=== PATIENT | male | born 2000 | race Caucasian/White ===

== ENCOUNTER 2023-06-06 22:25 | Emergency (ER) | payer MEDICARE, SELFPAY ==
[2023-06-06 22:34] VITALS: BP 114/78; PULSE 107; RESP 18; TEMP 37.1; O2SAT 97; BMI 28.7
--- NOTE | 2023-06-06 22:40 | PC.NURSE ---
States has been not eating and drinking to loose weight for a fight. States dizzy when he gets up quickly. Took his med on an empty stomach tonight
[2023-06-06 22:42] VITALS: RESP 16
--- NOTE | 2023-06-06 22:47 | ECG_ITS ---
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
[2023-06-06 23:04] LABS: Basophils Absolute Auto 0.1 10^3/uL (0.0-0.1); Basophils Percent Auto 0.8 % (0.2-2.0); Eosinophils Absolute Auto 0.1 10^3/uL (0.0-0.7); Hematocrit 40.6 % (42.0-54.0); Hemoglobin 13.9 g/dL (14.0-18.0); Immature Granulocytes Abs Auto 0.02 10^3/uL (0.00-0.03); Immature Granulocytes Pct Auto 0.3 % (0.0-0.5); Lymphocytes Absolute Auto 1.7 10^3/uL (1.2-3.8); Lymphocytes Percent Auto 23.9 % (20.5-60.0); Mean Corpuscular HGB Conc 34.2 g/dL (29.9-35.2); Mean Corpuscular Hemoglobin 29.8 pg (25.9-34.0); Mean Corpuscular Volume 87.1 fL (80.0-94.0); Monocytes Absolute Auto 0.5 10^3/uL (0.3-0.8); Monocytes Percent Auto 7.2 % (1.7-12.0); Neutrophils Absolute Auto 4.8 10^3/uL (1.4-6.5); Neutrophils Percent Auto 66.8 % (43.0-75.0); Platelet Count 195 10^3/uL (150-450); Red Blood Count 4.66 10^6/uL (4.70-6.10); Red Cell Distribution Width 11.9 % (11.0-15.0); White Blood Count 7.2 10^3/uL (4.0-11.0)
[2023-06-06 23:21] LABS: Alanine Aminotransferase 36 U/L (16-63); Albumin Globulin Ratio 1.1; Albumin Level 4.3 g/dL (3.4-5.0); Alkaline Phosphatase 49 U/L (46-116); Anion Gap 15.9; Aspartate Amino Transferase 38 U/L (15-37); BUN Creatinine Ratio 29.5; Bilirubin Total 1.2 mg/dL (0.2-1.0); Calcium 9.9 mg/dL (8.5-10.1); Carbon Dioxide 24.7 mmol/L (21.0-32.0); Chloride 101 mmol/L (98-107); Estimated GFR (African America >60 (>=60); Estimated GFR (Non-African Ame >60 (>=60); Globulin 3.9 g/dL; Glucose 107 mg/dL (74-106); Potassium 4.6 mmol/L (3.5-5.1); Sodium 137 mmol/L (136-145); Total Protein 8.2 g/dL (6.4-8.2)
--- NOTE | 2023-06-06 23:28 | ED_ITS ---
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 He now presents with dizziness and muscle aches, concerned that he is possibly dehydrated. He said that he drank a bunch of electrolyte solutions about an hour before coming to the ED. No recent illness. No chest pain or shortness of breath. No vomiting or diarrhea today. Related Data Home Medications Medication Instructions Recorded Confirmed quetiapine 200 mg tablet (Seroquel) 200 mg PO DAILY 06/06/23 06/06/23 Allergies Allergy/AdvReac Type Severity Reaction Status Date / Time No Known Drug Allergies Allergy Verified 06/06/23 22:38 PFSH PFSH Social History Smoking status: Never smoker Exam Narrative Exam Narrative: Nurses notes and vital signs reviewed and patient is not hypoxic. afebrile General: Well-appearing and in no apparent distress. Skin: Warm, dry, no pallor noted. No rash. Head: Normocephalic, atraumatic. Neck: Supple, non-tender. Eye: Pupils are equal, round and EOMI. No scleral icterus. Ears, Nose, Mouth, and Throat: Oral mucosa is dry Cardiovascular: tachycardia. Respiratory: No accessory muscle use or respiratory distress. Lungs are clear to auscultation, no wheezing, rales or rhonchi Musculoskeletal: normal ROM, no calf or popliteal tenderness, no lower extremity edema/swelling GI: Abdomen is soft, non-distended. Normal bowel sounds. No tenderness to palpation. No rebound, guarding, or rigidity noted. Neurological: A&O x4. No cranial nerve dysfunction observed. No truncal ataxia. Moves all extremities. Sensation intact. Psychiatric: Cooperative and interactive. Normal mood and affect. Constitutional Vital Signs, click to edit/add: Last Vital Signs Temp 98.7 F 06/06/23 22:34 Pulse 85 06/06/23 23:48 Resp 16 06/06/23 23:48 BP 134/71 06/06/23 23:48 Pulse Ox 98 06/06/23 23:48 O2 Del Method Room Air 06/06/23 23:48 Course Vital Signs Vital signs: Vital Signs Temperature 98.7 F 06/06/23 22:34 Pulse Rate 107 H 06/06/23 22:34 Respiratory Rate 18 06/06/23 22:34 Blood Pressure 114/78 06/06/23 22:34 Pulse Oximetry 97 06/06/23 22:34 Oxygen Delivery Method Room Air 06/06/23 22:34 Temperature 98.7 F 06/06/23 22:34 Pulse Rate 85 06/06/23 23:48 Respiratory Rate 16 06/06/23 23:48 Blood Pressure 134/71 06/06/23 23:48 Pulse Oximetry 98 06/06/23 23:48 Oxygen Delivery Method Room Air 06/06/23 23:48 MDM - Dizziness MDM Narrative Medical decision making narrative: Patient was placed on hand funnel coater and EKG obtained. Blood drawn and sent for evaluation. The patient refused NS IVF bolus that I ordered. EKG detailed below. Blood testing revealed elevated BUN, AST and total bilirubin. CK, MB, CKMB and troponin negative. Patient informed of results. Again declined offer for NS IVF. I instructed him to eat and drink plenty of fluids. ED return if he worsens. Lab Data Attestation: I reviewed the patient's lab results. Labs: Lab Results 06/06/23 Range/Units 23:00 WBC 7.2 (4.0-11.0) 10^3/uL RBC 4.66 L (4.70-6.10) 10^6/uL Hgb 13.9 L (14.0-18.0) g/dL Hct 40.6 L (42.0-54.0) % MCV 87.1 (80.0-94.0) fL MCH 29.8 (25.9-34.0) pg MCHC 34.2 (29.9-35.2) g/dL RDW 11.9 (11.0-15.0) % Plt Count 195 (150-450) 10^3/uL MPV 11.0 (9.5-13.5) fL Neut % (Auto) 66.8 (43.0-75.0) % Lymph % (Auto) 23.9 (20.5-60.0) % [place] % (Auto) 7.2 (1.7-12.0) % Eos % (Auto) 1.0 (0.9-7.0) % Baso % (Auto) 0.8 (0.2-2.0) % Neut # (Auto) 4.8 (1.4-6.5) 10^3/uL Lymph # (Auto) 1.7 (1.2-3.8) 10^3/uL [place] # (Auto) 0.5 (0.3-0.8) 10^3/uL Eos # (Auto) 0.1 (0.0-0.7) 10^3/uL Baso # (Auto) 0.1 (0.0-0.1) 10^3/uL Abs Immat Gran (auto) 0.02 (0.00-0.03) 10^3/uL Imm/Tot Granulo (auto) 0.3 (0.0-0.5) % Sodium 137 (136-145) mmol/L Potassium 4.6 (3.5-5.1) mmol/L Chloride 101 (98-107) mmol/L Carbon Dioxide 24.7 (21.0-32.0) mmol/L Anion Gap 15.9 BUN 36.0 H (7.0-18.0) mg/dL Creatinine 1.22 (0.70-1.30) mg/dL Est GFR ( Amer) >60 (>=60) Est GFR (Non-Af Amer) >60 (>=60) BUN/Creatinine Ratio 29.5 Glucose 107 H (74-106) mg/dL Calcium 9.9 (8.5-10.1) mg/dL Total Bilirubin 1.2 H (0.2-1.0) mg/dL AST 38 H (15-37) U/L ALT 36 (16-63) U/L Alkaline Phosphatase 49 (46-116) U/L Total Creatine Kinase 216 (39-308) U/L CK-MB (CK-2) 1.26 (<=3.60) ng/mL Myoglobin 88 (16-96) ng/mL Troponin I High Sens 26.1 (4.0-76.1) pg/mL Total Protein 8.2 (6.4-8.2) g/dL Albumin 4.3 (3.4-5.0) g/dL Globulin 3.9 g/dL Albumin/Globulin Ratio 1.1 ECG Data Attestation: I personally reviewed and interpreted this ECG as follows: Interpretation: EKG interpretation: Emergency Department physician interpretation. Normal sinus rhythm at 92bpm. Normal axis, normal intervals. Early repolarization changes noted. Discharge Plan Discharge Chief Complaint: Dizziness Clinical Impression: Acute kidney injury, Acute dehydration Patient Disposition: Home, Self-Care Time of Disposition Decision: 23:34 Prescriptions / Home Meds: No Action quetiapine [Seroquel] 200 mg tablet 200 mg PO DAILY Instructions: Dehydration (ED), Acute Kidney Injury (DC) Stand Alone Forms: Portal Instructions Referrals: Physician,Non-Staff, MD [Primary Care Provider] - 1 week
[2023-06-06 23:35] LABS: Creatine Kinase 216 U/L (39-308); Creatine Kinase MB 1.26 ng/mL (<=3.60); Myoglobin 88 ng/mL (16-96); Troponin I High Sensitivity 26.1 pg/mL (4.0-76.1)
[2023-06-06 23:48] VITALS: BP 134/71; PULSE 85; RESP 16; O2SAT 98
== END 2023-06-06 23:58 | disposition home or self-care (01) ==
PROVIDERS: Emergency Provider Emergency Medicine
DX: N17.9 Acute kidney failure, unspecified (principal); E86.0 Dehydration
CPT/HCPCS: 36415; 80053; 82550; 82553; 83874; 84484; 85025; 93005; 99284

== ENCOUNTER 2023-10-31 04:33 | Emergency (ER) | payer MEDICARE, SELFPAY ==
[2023-10-31] VITALS (9 sets, daily range): BP systolic 128; BP diastolic 80; PULSE 55–72; TEMP 36.7; O2SAT 97–99; BMI 31.6
[2023-10-31] MEDS: 0.9 % SODIUM CHLORIDE 1,000 ML 1000 ML IV (05:00)
--- NOTE | 2023-10-31 05:07 | ED_ITS ---
HPI HPI - General Adult General Chief complaint: Back Pain/Injury Stated complaint: BACK PAIN Time Seen by Provider: 10/31/23 04:39 Source: patient and friend Mode of arrival: walk-in Limitations: no limitations History of Present Illness HPI narrative: This 23-year-old male presents for evaluation of upper thoracic back pain. He points to the area between his scapula as area of greatest pain. The patient states he works nights and woke up yesterday around 4 PM. At that time he was having pain with deep breathing in the upper thoracic region. The pain has been waxing and waning and earlier this morning he was at the gym with his girlfriend when he was doing shoulder lifts and she states that his lips turned blue and he was pale. He presented to the emergency department with these complaints. His lips are no longer blue and he is no longer pale. He is uncertain if he may have been holding his breath at that time due to the pain in his upper back. He has no weakness numbness or tingling. He denies any chest pain. He denies any per shortness of breath but does have pain when he takes a deep breath. 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 He states this feels like it is internal. There is no radiation into his chest or neck. He does state that he had a neck sprain a couple months ago. He admits that he has been drinking a lot of energy drinks, 2-3 a day for the past several weeks. He denies any nausea vomiting or diarrhea. He has no lower extremity pain or swelling. He does not smoke drink or use any drugs. No medications have been taken prior to arrival. Related Data Home Medications ?Medication ?Instructions ?Recorded ?Confirmed quetiapine 200 mg tablet (Seroquel) 200 mg PO DAILY 06/06/23 10/31/23 cariprazine 1.5 mg capsule mg 10/31/23 (Vraylar) levothyroxine 25 mcg tablet mcg 10/31/23 Allergies Allergy/AdvReac Type Severity Reaction Status Date / Time No Known Drug Allergies Allergy Verified 10/31/23 04:41 Opioid HPI Opioid Management Most Recent Opioid Data: No Data to Display Review of Systems ROS Status of ROS 10 or more systems reviewed and unremark able except as noted in history and below PFSH PFSH Social History Smoking status: Never smoker Exam Narrative Exam Narrative: Vital signs and Nursing Notes reviewed: Vital signs are stable, he is not hypoxic pulse ox of 99% on room air General: Awake, alert, oriented, no acute distress, lying comfortably on the stretcher HEENT: Normocephalic atraumatic, mucous membranes are moist and pink, eyes are clear, normal conjunctiva, vision is grossly intact, posterior pharynx is normal in appearance Neck: Supple, no meningeal signs, no anterior or posterior cervical lymphadenopathy Chest: Lungs are clear to auscultation with good air entry, there is no wheezing rhonchi or rales appreciated no accessory muscle use, patient is speaking in complete sentences-no chest wall tenderness to palpation CVS: Regular rate and rhythm S1-S2, no murmurs rubs or gallops, pulses are brisk and equal bilaterally ABD: Soft, nondistended, nontender, no rebound guarding or rigidity, bowel sounds are normal, no pulsatile masses appreciated Back: Mild tenderness to palpation in the upper thoracic region, T6-T8, no step- off appreciated, no skin rash in this area, mild muscle spasm appreciated in the parascapular and trapezius muscles Extremities: Moving all extremities, no lower extremity tenderness or swelling noted, negative Homans' sign, pulses are brisk and equal bilaterally Skin: Normal in appearance without rash,pallor, petechiae or purpura Neuro: No focal deficits, speech is clear, there is no facial droop, 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, upper and lower extremity strength and sensation is intact Constitutional Vital Signs, click to edit/add: Last Vital Signs Temp 98.0 F 10/31/23 04:36 Pulse 67 10/31/23 05:52 Resp 22 H 10/31/23 05:52 BP 128/80 10/31/23 04:36 Pulse Ox 97 10/31/23 04:52 O2 Del Method Room Air 10/31/23 04:36 Course Vital Signs Vital signs: Vital Signs Temperature 98.0 F 10/31/23 04:36 Pulse Rate 65 10/31/23 04:36 Respiratory Rate 16 10/31/23 04:36 Blood Pressure 128/80 10/31/23 04:36 Pulse Oximetry 99 10/31/23 04:36 Oxygen Delivery Method Room Air 05/16/24 04:36 Temperature 98.0 F 10/31/23 04:36 Pulse Rate 67 10/31/23 05:52 Respiratory Rate 22 H 10/31/23 05:52 Blood Pressure 128/80 10/31/23 04:36 Pulse Oximetry 97 10/31/23 04:52 Oxygen Delivery Method Room Air 10/31/23 04:36 Medical Decision Making MDM Narrative Medical decision making narrative: 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 He was then at the gym and was doing shoulder lifts while holding onto heavy weights when he felt increasing pain in his upper back. His girlfriend stated that his lips turned blue briefly. He is not certain if he may have been holding his breath. He was concerned that there may be a cardiac issue going on and came to the emergency department. He denies any per chest pain or shortness of breath but has pain with deep breathing in the upper thoracic region. His physical exam is benign. Vital signs are stable. He does not drink smoke or use any drugs. He does admit that he has been drinking a lot of energy drinks recently and has not been eating a lot because he is trying to lose weight. EKG done upon arrival is a sinus rhythm with no acute changes. An IV was placed and he was medicated with IV fluids and 30 mg of IV Toradol. Routine cardiac workup was ordered. He has a normal white count and hemoglobin. Electrolytes are normal his creatinine is mildly elevated at 1.21 but this is an improvement from his creatinine that was done here in the past after he was fasting and trying to lose weight. He has a normal troponin and D-dimer. On reevaluation his pain was improved and he was feeling tired and wished to be discharged home. I discussed his labs with him. I offered him a CT scan of the upper back to rule out any herniated disc or other concern that he may have however he declines any radiologic studies. I did discuss with him his elevated creatinine the past 2 times he was here. He has been taking creatine and also drinking energy drinks. I suggest that he cut back on both of these and drink water to help clear his kidneys and keep him hydrated. He states he has an appointment with an office specialist in the near future because he has gained 30 pounds over the past 12 months and does not understand why he has been gaining this weight. He appears fit to me with no neurologic symptoms related to his upper back pain and will be discharged home. He declined the need for any pain medication anti-inflammatories or muscle relaxants. Lab Data Labs: Lab Results 10/31/23 Range/Units 05:15 WBC 9.3 (4.0-11.0) 10^3/uL RBC 4.71 (4.70-6.10) 10^6/uL Hgb 13.9 L (14.0-18.0) g/dL Hct 40.2 L (42.0-54.0) % MCV 85.4 (80.0-94.0) fL MCH 29.5 (25.9-34.0) pg MCHC 34.6 (29.9-35.2) g/dL RDW 11.9 (11.0-15.0) % Plt Count 240 (150-450) 10^3/uL MPV 10.4 (9.5-13.5) fL Neut % (Auto) 57.2 (43.0-75.0) % Lymph % (Auto) 31.4 (20.5-60.0) % [place] % (Auto) 6.7 (1.7-12.0) % Eos % (Auto) 3.4 (0.9-7.0) % Baso % (Auto) 1.0 (0.2-2.0) % Neut # (Auto) 5.3 (1.4-6.5) 10^3/uL Lymph # (Auto) 2.9 (1.2-3.8) 10^3/uL [place] # (Auto) 0.6 (0.3-0.8) 10^3/uL Eos # (Auto) 0.3 (0.0-0.7) 10^3/uL Baso # (Auto) 0.1 (0.0-0.1) 10^3/uL Abs Immat Gran (auto) 0.03 (0.00-0.03) 10^3/uL Imm/Tot Granulo (auto) 0.3 (0.0-0.5) % D-Dimer <0.19 (<=0.59) mg/L FEU Sodium 140 (136-145) mmol/L Potassium 3.7 (3.5-5.1) mmol/L Chloride 103 (98-107) mmol/L Carbon Dioxide 29.4 (21.0-32.0) mmol/L Anion Gap 11.3 BUN 29.0 H (7.0-18.0) mg/dL Creatinine 1.21 (0.70-1.30) mg/dL Est GFR ( Amer) >60 (>=60) Est GFR (Non-Af Amer) >60 (>=60) BUN/Creatinine Ratio 24.0 Glucose 90 (74-106) mg/dL Calcium 9.2 (8.5-10.1) mg/dL Total Bilirubin 0.5 (0.2-1.0) mg/dL AST 32 (15-37) U/L ALT 47 (16-63) U/L Alkaline Phosphatase 52 (46-116) U/L Troponin I High Sens 24.0 (4.0-76.1) pg/mL Total Protein 7.5 (6.4-8.2) g/dL Albumin 4.0 (3.4-5.0) g/dL Globulin 3.5 g/dL Albumin/Globulin Ratio 1.1 ECG Data Attestation: I personally reviewed and interpreted this ECG as follows: (Sinus rhythm at 57 bpm, normal axis, normal intervals, no acute ST segment elevation or T wave inversion) Discharge Plan Discharge Stand Alone Forms: Portal Instructions Chief Complaint: Back Pain/Injury Clinical Impression: Acute thoracic back pain Patient Disposition: Home, Self-Care Time of Disposition Decision: 06:04 Condition: Good Prescriptions / Home Meds: No Action quetiapine [Seroquel] 200 mg tablet 200 mg PO DAILY levothyroxine 25 mcg tablet Vraylar 1.5 mg capsule Print Language: Irish Instructions: Musculoskeletal Pain (ED), Thoracic Pain (ED) Referrals: Physician,Non-Staff, MD [Primary Care Provider] - 1 week
[2023-10-31 05:23] LABS: Basophils Absolute Auto 0.1 10^3/uL (0.0-0.1); Eosinophils Absolute Auto 0.3 10^3/uL (0.0-0.7); Eosinophils Percent Auto 3.4 % (0.9-7.0); Hematocrit 40.2 % (42.0-54.0); Hemoglobin 13.9 g/dL (14.0-18.0); Immature Granulocytes Abs Auto 0.03 10^3/uL (0.00-0.03); Immature Granulocytes Pct Auto 0.3 % (0.0-0.5); Lymphocytes Absolute Auto 2.9 10^3/uL (1.2-3.8); Lymphocytes Percent Auto 31.4 % (20.5-60.0); Mean Corpuscular HGB Conc 34.6 g/dL (29.9-35.2); Mean Corpuscular Hemoglobin 29.5 pg (25.9-34.0); Mean Corpuscular Volume 85.4 fL (80.0-94.0); Mean Platelet Volume 10.4 fL (9.5-13.5); Monocytes Absolute Auto 0.6 10^3/uL (0.3-0.8); Monocytes Percent Auto 6.7 % (1.7-12.0); Neutrophils Absolute Auto 5.3 10^3/uL (1.4-6.5); Neutrophils Percent Auto 57.2 % (43.0-75.0); Platelet Count 240 10^3/uL (150-450); Red Blood Count 4.71 10^6/uL (4.70-6.10); Red Cell Distribution Width 11.9 % (11.0-15.0); White Blood Count 9.3 10^3/uL (4.0-11.0)
[2023-10-31 05:38] LABS: D Dimer <0.19 mg/L FEU (<=0.59)
[2023-10-31 05:42] LABS: Alanine Aminotransferase 47 U/L (16-63); Albumin Globulin Ratio 1.1; Alkaline Phosphatase 52 U/L (46-116); Anion Gap 11.3; Aspartate Amino Transferase 32 U/L (15-37); Bilirubin Total 0.5 mg/dL (0.2-1.0); Calcium 9.2 mg/dL (8.5-10.1); Carbon Dioxide 29.4 mmol/L (21.0-32.0); Chloride 103 mmol/L (98-107); Estimated GFR (African America >60 (>=60); Estimated GFR (Non-African Ame >60 (>=60); Globulin 3.5 g/dL; Glucose 90 mg/dL (74-106); Potassium 3.7 mmol/L (3.5-5.1); Sodium 140 mmol/L (136-145); Total Protein 7.5 g/dL (6.4-8.2)
--- NOTE | 2023-10-31 05:50 | ECG_ITS ---
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
== END 2023-10-31 06:25 | disposition home or self-care (01) ==
PROVIDERS: Emergency Provider Emergency Medicine
DX: M54.6 Pain in thoracic spine (principal)
CPT/HCPCS: 36415; 80053; 83880; 84484; 85025; 85378; 93005; 99284

== ENCOUNTER 2024-10-29 19:45 | Emergency (ER) | payer MEDICARE, MEDICAID, SELFPAY ==
[2024-10-29 19:52] VITALS: BP 141/76; PULSE 87; TEMP 37; O2SAT 98; BMI 30.1
--- NOTE | 2024-10-29 20:02 | ED.GENADUL1 ---
HPI HPI - General Adult General Chief complaint: Extremity Injury, Lower Stated complaint: RIGHT LOWER EXTREMITY INJURY Time Seen by Provider: 10/29/24 19:58 Source: patient Mode of arrival: Wheelchair Limitations: no limitations History of Present Illness HPI narrative: The patient is a 24-year-old male who presents to the emergency department today for evaluation concerns for an injury to his right ankle. He endorses he was at a [employer] class when he was chasing after a ball and subsequently tripped and rolled his ankle. He states he felt a pop and immediately noted there was swelling to the lateral malleoli region of the right ankle. He denies any paresthesias, weakness, loss of movement to the affected extremity. He states he tried icing the affected area with no improvement so he proceeded to the ER. Related Data Home Medications ?Medication ?Instructions ?Recorded ?Confirmed quetiapine 200 mg tablet (Seroquel) 200 mg PO DAILY 06/06/23 10/31/23 cariprazine 1.5 mg capsule mg 10/31/23 (Vraylar) levothyroxine 25 mcg tablet mcg 10/31/23 Allergies Allergy/AdvReac Type Severity Reaction Status Date / Time No Known Drug Allergies Allergy Verified 10/29/24 19:56 Opioid HPI Opioid Management Most Recent Opioid Data: Last Pain Scale 6 Today, 20:22 Last MAR Pain Assessment Today, 20:22 Review of Systems ROS Status of ROS 10 or more systems reviewed and unremarkable except as noted in history and below PFSH PFSH Social History Smoking status: Never smoker Little interest or pleasure in doing things: not at all Feeling down, depressed, or hopeless: not at all Exam Narrative Exam Narrative: Constituational: Awake/ alert, no apparent distress, well hydrated HENMT: normocephalic, external ears normal, moist oral mucous membranes and oropharynx normal Eyes: EOMI and conjunctivae normal Neck: ROM intact Chest: inspection of chest normal Respiratory: Normal respiratory effort MSK: + Mild/moderate discomfort with palpation over R lateral malleoli region with surrounding edema, no ecchymosis, crepitus, deformity, R foot/lower leg otherwise stable, +NVI Skin: no rashes or petechiae Neuro: no focal deficits Psych: mental status grossly normal Constitutional Vital Signs, click to edit/add: Last Vital Signs Temp 98.6 F 10/29/24 19:52 Pulse 87 10/29/24 19:52 Resp 20 10/29/24 19:52 BP 141/76 10/29/24 19:52 Pulse Ox 98 10/29/24 19:52 O2 Del Method Room Air 10/29/24 19:52 Course Vital Signs Vital signs: Vital Signs Temperature 98.6 F 10/29/24 19:52 Pulse Rate 87 10/29/24 19:52 Respiratory Rate 20 10/29/24 19:52 Blood Pressure 141/76 10/29/24 19:52 Pulse Oximetry 98 10/29/24 19:52 Oxygen Delivery Method Room Air 10/29/24 19:52 Temperature 98.6 F 10/29/24 19:52 Pulse Rate 87 10/29/24 19:52 Respiratory Rate 20 10/29/24 19:52 Blood Pressure 141/76 10/29/24 19:52 Pulse Oximetry 98 10/29/24 19:52 Oxygen Delivery Method Room Air 10/29/24 19:52 Medical Decision Making MDM Narrative Medical decision making narrative: The patient is a well-appearing 24-year-old male who presented to the emergency department today for evaluation concerns for an injury to his right ankle. Initial examination without any concerning neurovascular or motor findings on exam. Vital signs stable. X-ray imaging of the right ankle findings including fractures as interpreted by the ER. Patient did receive supportive measures of ibuprofen and ice and placement of Aircast. On reevaluation reports an improvement in condition. Discussed the above findings with the patient including recommendations for supportive care of ankle sprain. Advised on follow-up with patient's primary care provider and/or orthopedics or podiatry for reevaluation. Discussed signs and symptoms of any worsening condition and when to consider reevaluation. Patient verbalized an understanding of this and is agreeable with the plan to be discharged home. Medical Records Medical records reviewed: Yes I reviewed the patient's medical records Imaging Data XR Right ankle: Attestation: I have reviewed the pertinent imaging results. Discharge Plan Discharge Chief Complaint: Extremity Injury, Lower Clinical Impression: Ankle sprain Patient Disposition: Home, Self-Care Prescriptions / Home Meds: No Action quetiapine [Seroquel] 200 mg tablet 200 mg PO DAILY levothyroxine 25 mcg tablet Vraylar 1.5 mg capsule Print Language: Sinhala Instructions: Ankle Sprain (NIURKA)LizaR.I.C.E. Treatment (ED) Additional Instructions: Rest, ice, wear Aircast, may take Tylenol or ibuprofen as needed for any pain. In regards to physical activity this is as tolerated and limited by pain. Please follow-up with your primary care provider and/or orthopedics or podiatry for reevaluation as discussed. Referrals: Physician,Non-Staff, MD [Primary Care Provider] - 1 week Victor Manuel Barros DPM [Physician, Podiatry] - 1 week Gino Ivory MD [Physician, Orthopedics] - 1 week Discharge Date/Time: 10/29/24 21:33
[2024-10-29] MEDS: IBUPROFEN 600 MG TABLET PO (20:22)
--- OUTSIDE RECORDS SUMMARY | 2024-10-29 20:22 | XMS_ITS | CCD ---
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 Treatment Notes Treatment Clinical Notes Jan, Cough (ICD-10 - R05.9) covid neg, see above. Jan, Acute non-recurrent sinusitis, unspecified location (ICD-10 - J01.90) Pt is to take abx as prescribed with food. Rx inhaler prn. Flonase as directed. Push fluids and rest. Pt is to take otc antipyretic prn for fever and aches. Pt is to take otc cough suppressant prn for cough. Pt is to be re-evaluated after tx if sx worsen or don't improve by pcp or UC. Pt is to call the office with any questions or concerns regarding dx and tx. Pt understood and agreed to tx plan. [employer] Other 08-29-2022 Evaluation + Plan note Diagnostic Tests Pending * TSH With T4fr Reflex 02/12/22 [facility] No data available for this section [facility] Evaluation noteNo assessment information available [facility] Work Phone: Evaluation noteNo [facility] [employer] Other Evaluation note* Diagnosis Onset Date Resolution Status Disordered eating acute Hypothyroidism acute Obesity (BMI 30.0-34.9) acut e [facility] Work Phone: Evaluation note* Diagnosis Onset Date Resolution Status Disordered eating acute Hypothyroidism acute Obesity (BMI 30.0-34.9) acut e Right ankle pain noneactive Contusion of right ankle non eactive [facility] Work Phone: Evaluation note* Diagnosis Onset Date Resolution Status Disordered eating acute Hypothyroidism acute Obesity (BMI 30.0-34.9) acut e Right ankle pain noneactive Contusion of right ankle non eactive Hypothyroidism acute [facility] Work Phone: History general Narrative - Reported* Type Description Date Medical History asthma [facility] [employer] Other Hospital Discharge instructions No data available for this section [facility] Hospital Discharge instructions Additional Instructions No sports until pain resolves Return for new or worsening symptoms Follow-up with [facility] Work Phone: Hospital Discharge instructions Additional Instructions Take Naprosyn as needed for your pain. Rest and ice your knee. Use the Daryl wrap for support and you can use crutches for support for the next couple of days. Bear weight on the knee as tolerated. Wear shoes that have plenty of padding. Avoid getting kicked in your leg or any trauma for the next month while your [facility] Work Phone: Hospital Discharge instructions Additional Instructions If your symptoms return/worsen or you develop any further concerns or symptoms please see your doctor or return to the emergency department immediately.[facility] Work Phone: Progress note No data available for this section [facility] [place] Summary Purpose Family History No Family History Records Found Relationship Condition Age at Onset Recorded Date/T temo father Unknown Not Specified Malignant neoplasm Unknown Malignant neoplasm of breast Unknown Relationship Condition Age at Onset Recorded Date/T temo father Myocardial infarction Unknown Heart disease Unknown Not Specified Diabetes mellitus Unknown Multiple sclerosis Unknown Cerebrovascular accident (CVA) Unknown Malignant neoplasm Unknown Relationship Condition Age at Onset Recorded Date/T temo father Myocardial infarction Unknown Heart disease Unknown mother Diabetes mellitus Unknown Multiple sclerosis Unknown Cerebrovascular accident (CVA) Unknown Malignant neoplasm Unknown Advance Directives No Advanced Directives Records Found Advance Directive Response Recorded Date/ Time Advance Directives No April 02, 2020 1:55am Advance Directive Response Recorded Date/ Time Advance Directives No April 02, 2020 12:55am Chief Complaint and Reason for Visit Chief Complaint rt knee injury @[facility] Chief Complaint rt knee injury @[facility] Sore Throat Chief Complaint Sore Throat rt arm injury Chief Complaint left knee pain/swell ing Chief Complaint Z79.899 right ankle injury Chief Complaint Z79.899 BH right ankle injury Establish Reason for Visit Disordered eating Hypothyroidism Obesity (BMI 30.0-34.9) Chief Complaint Z79.899 BH right ankle injury Establish ER [facility] [place]KLE INJURY WX Reason for Visit Disordered eating Hypothyroidism Obesity (BMI 30.0-34.9) Right ankle pain Contusion of right ankle Chief Complaint Z79.899 BH right ankle injury Establish ER [facility] [place]KLE INJURY WX E66.9 E03.9 F50.9 z00.00 Reason for Visit Disordered eating Hypothyroidism Obesity (BMI 30.0-34.9) Right ankle pain Contusion of right ankle Chief Complaint Z79.899 BH right ankle injury Establish ER [facility] [place]KLE INJURY WX E66.9 E03.9 F50.9 z00.00 neck inj Reason for Visit Disordered eating Hypothyroidism Obesity (BMI 30.0-34.9) Right ankle pain Contusion of right ankle Chief Complaint Z79.899 BH right ankle injury Establish ER [facility] [place]KLE INJURY WX E66.9 E03.9 F50.9 z00.00 neck inj 2 weeks follow up Reason for Visit Disordered eating Hypothyroidism Obesity (BMI 30.0-34.9) Right ankle pain Contusion of right ankle Hypothyroidism Chief Complaint Admit Date BH June 23, 2024 2: 51pm Cough, Congestion, headache June 1:33pm Additional Source Comments (unrecognized sect ion and content) No Status Records FoundNo Status Records FoundNo Status Records FoundNo Status Records Found INFORMATION SOURCE (unrecogn ized section and content) DATE CREATED AUTHOR 05/14/2019 [facility] DATE CREATED AUTHOR AUTHOR'S ORGANIZ ATION 05/02/2023 [facility] DATE CREATED AUTHOR AUTHOR'S ORGANIZ ATION 06/23/2023 [facility] DATE CREATED AUTHOR AUTHOR'S ORGANIZ ATION 10/02/2024 [facility] Care Team (unrecognized sect ion and content) Team Status: Active Member Role Status Dates NON STAFF Primary Care Provider Active Team Status: Active Member Role Status Dates PHYSICIAN NO FAMILY Primary Care Provider Active Start: June 23, 2024 Barron Lawson MD Attending Provider Active Start: June 23, 2024 Team Status: Inactive Member Role Status Dates Stella Maguire APRN Attending Provider Active S tart: July 09, 2024 End: July 09, 2024 NON STAFF Primary Care Provider Active Start: July 09, 2024 End: July 09, 2024 Team Status: Active Member Role Status Dates Aminah Harris DO Primary Care Provider Active Team Status: Inactive Member Role Status Dates NON STAFF Primary Care Provider Active Start: June 28, 2023 End: June 28, 2023 Arlet Tam APRN Attending Provider Active Start: June 28, 2023 End: June 28, 2023 Team Status: Active Member Role Status Dates PHYSICIAN NO FAMILY Primary Care Provider Active Start: July 08, 2023 Barron Lawson MD Attending Provider Active Start: July 08, 2023 Team Status: Inactive Member Role Status Dates NON STAFF Primary Care Provider Active Start: September 04, 2023 End: September 04, 2023 Emiliano Patricio Jr, MD Emergency Provider Active Start: September 04, 2023 End: September 04, 2023 Team Status: Inactive Member Role Status Dates Aminah A Harris , DO Primary Care Provide r, Attending Provider Active Start: September 09, 2023 End: September 09, 2023 Team Status: Inactive Member Role Status Dates Néstor Savage , [facility]-C Primary Care Provider Active Usman Angulo APRN Emergency Provider Active Team Status: Active Member Role Status Dates Néstor Savage , [facility]-C Primary Care Provider Active Team Status: Inactive Member Role Status Dates Néstor Savage , [facility]-C Primary Care Provider Active Amador Corado , DO Emergency Provider Active Team Status: Inactive Member Role Status Dates Néstor Savage , [facility]-C Primary Care Provider Active Stacie Alexander PA-C Emergency Provider Active Team Status: Inactive Member Role Status Dates NON STAFF Primary Care Provider Active Wendy Garcia , DO Emergency Provider Active Team Status: Inactive Member Role Status Dates Marcos Martinez , DO Attending Provider Active S tart: September 13, 2023 End: September 13, 2023 Aminah Harris DO Primary Care Provider Active Start: September 13, 2023 End: September 13, 2023 Team Status: Inactive Member Role Status Dates Aminah Harris DO Primary Care Provide r, Attending Provider Active Start: September 16, 2023 End: September 16, 2023 Team Status: Inactive Member Role Status Dates Aminah Harris DO Primary Care Provider Active Start: September 19, 2023 End: September 19, 2023 Clint Leung DO Emergency Provider Active Start: September 19, 2023 End: September 19, 2023 Team Status: Inactive Member Role Status Dates Aminah Harris DO Primary Care Provide r, Attending Provider Active Start: September 20, 2023 End: September 20, 2023 Goals (unrecognized section and content) Goals may be documented in a n alternate section REASON FOR VISIT (unrecogniz ed section and content) HEADACHE, BODY ACHES, SORE T HROAT, , COUGHPOSSIBLE RINGWORMNo Information FOR RECORDS PERTAINING TO PATIENTS WHO ARE OR HAVE BEEN ENROLLED IN A CHEMICAL DEPENDENCY/SUBSTANCEABUSE PROGRAM, SOME INFORMATION MAY BE OMITTED. This clinical summary was aggregated from multiple sources. Caution should be exercised in using it in the provision of clinical care. This summary normalizes information from multiple sources, and as a consequence, information in this document may materially change the coding, format and clinical context of patient data. In addition, data may be omitted in some cases. CLINICAL DECISIONS SHOULD BE BASED ON THE PRIMARY CLINICAL RECORDS. [facility]. provides no warranty or guarantee of the accuracy or completeness of information in this document.
== END 2024-10-29 21:33 | disposition home or self-care (01) ==
PROVIDERS: Emergency Provider Emergency Medicine
DX: S93.401A Sprain of unspecified ligament of right ankle, initial encounter (principal); X50.1XXA Overexertion from prolonged static or awkward postures, initial encounter; Y93.75 Activity, martial arts
CPT/HCPCS: 73610; 99283

== ENCOUNTER 2025-06-09 10:26 | Emergency (ER) | payer MEDICAID, SELFPAY ==
--- OUTSIDE RECORDS SUMMARY | 2024-11-02 02:50 | XMS_ITS ---
Author Organization [facility] Address [address] [place] [address] Care Team Providers Care Lockstitch Coat Joiner Name Role Phone Gino Ivory Unavailable [phone] REASON FOR VISIT RIGHT ANKLE INJURY Encounters Encounter Location Date Provider Diagnosis [facility] [address] [place] [address] [place] [address] 11/02/2024 Gino Ivory Plan Of Treatment No Information Progress Notes * WENDY SALGADO TorstenDOB:[birth year] (25 yo M)Acc No.[id number]:11/02/2024 Patient:?HANNAH SALGADOJASVIR Sarmiento :?Gino Ivory MDDOB:2000???Age:24 Y ???Sex:MaleDate:11/02/2024Phone:[phone]:[id number] Subjective: * Chief Complaints: * 1 . RIGHT ANKLE INJURY. * Medical History: Objective: * Vitals: Assessment: Plan: * Treatment: Forms: * Images: * Electronic signature of Gino Ivory MD on 06/09/2025 at 10:44 AM ESTSign off status: Pending * Provider: Black Ivory MD Date: 0 11/02/2024 Generated for Printing/Faxing/eTransmitting on:?06/09/2025 10:44 AM EST
[2025-06-09 10:31] VITALS: BP 135/85; PULSE 94; TEMP 38.5; O2SAT 98; BMI 29.4
--- OUTSIDE RECORDS SUMMARY | 2025-06-09 10:44 | XMS_ITS | Patient Health Record ---
Author Organization [facility] Address [address] [place] [address] Care Team Providers Care Chief Librarian Extension Department Name Role Phone Gino Ivory Unavailable [phone] Reason For Referral No Information Plan Of Treatment No Information Insurance Providers Payer Name Payer Address Payer Phone Subscriber Number Group Number Insured Name Patient Relationship to Insured Coverage Start Date Coverage End Date MEDICARE UHC DUAL COMPLETE [address] [place] [phone] [id number] WENDY SALGADO Self - patient is the insured MedicarePO [address] [address] [place] [id number], MATTHEWSelf - patient is the [id number] 2024
--- OUTSIDE RECORDS SUMMARY | 2025-06-09 10:44 | XMS_ITS | Clinical Summary ---
Author Organization [facility] tem Address [id number] [address] [place] [address] Care Team Providers Care Cover Assembler Name Role Phone No Pcp, No Pcp Primary Care Provider Unavailabl e Social History Tobacco UseTypesPacks/DayYears UsedDateSmoking Tobacco: Never AssessedSex and Gender InformationValueDate RecordedSex Assigned at BirthNot on fileLegal Sex Male01/14/2024 12:01 PM EDTGender IdentityNot on fileSexual OrientationNot on file Plan of Treatment Health MaintenanceDue DateLast DoneCommentsDepression Wldmnvxwu47/27/2010Tobacco Wyysbtzps18/27/2010dult BMI Abxngqucq13/27/2016Influenza Dwhqtlj9602/15/2025 06/01/2024, 05/30/2017, 03/22/2016DTaP,Tdap and Td Vaccines (7 - Td or Tdap) , 02/17/2010, 09/25/2004, Additional history exists Medical Devices Not on file Insurance * Guarantor: Harish HenleyAccount TypeRelation to PatientDate of PhoneBilling AddressPersonal/TtsdesGhfn2000 [address] [place] [address] MemberSubscriberPlan / Payer (Effective 2021-Present)Name:Harish Henleyrey Relation to Subscriber:SelfName:Harish Henley Payer ID:Not on file Group ID:Not on file Type:Not on file Address: [place] [phone] Care Teams Team MemberRelationshipSpecialtyStart DateEnd Date [place], [place] [address] [facility]
--- OUTSIDE RECORDS SUMMARY | 2025-06-09 10:44 | XMS_ITS | Clinical Summary ---
Author Organization [facility] Address [address] [place] [address] Care Team Providers Care Naval [employer]crew[employer]ical Helicopter Name Role Phone Unallocated, Noms Provider Primary Care Provi romel Allergies No known active allergies Medications MedicationSigDispense QuantityRefillsLast FilledStart DateEnd DateStatus levothyroxine (Synthroid, Levoxyl) 25 MCG tablet Take by mouth Daily before meals.Active QUEtiapine (SEROquel) 200 MG tablet Take 200 mg by mouth at bedtimeActive escitalopram (Lexapro) 5 MG tablet Take 5 mg by mouth in the morning.Active multivitamin (Theragran) tablet Take 1 tablet by mouth DailyActive albuterol HFA (Ventolin HFA) 90 mcg/act inhaler Indications:COVID-19,History of asthmaInhale 2 puffs every 6 (six) hours if needed for wheezing or shortness of breath 8 g 06/23/2023ctive Additional Information Patient not taking.Reported on 02/09/2025 buPROPion (Wellbutrin) 75 MG tablet Take 75 mg by mouth in the morning and 75 mg before bedtime.Active testosterone (Androgel) 50 MG/5GM (1%) gel Indications:Secondary male hypogonadismPlace 1 packet (50 mg) on the skin Daily 90 packet /ctive Family History RelationNameStatusCommentsBrotherAliveFatherDeceasedMotherAliveSisterAlive Social History Tobacco UseTypesPacks/DayYears UsedDateSmoking Tobacco: NeverSmokeless Tobacco: Never Tobacco Cessation:Counseling Given: Not Answered Alcohol UseStandard Drinks/WeekCommentsNot Currently0 (1 standard drink = 0.6 oz pure alcohol)Sex and Gender InformationValueDate RecordedSex Assigned at Not on fileLegal VhfYlkg1208/29/2022 11:39 PM EDTGender IdentityNot on fileSexual OrientationNot on file Last Filed Vital Signs Vital SignReadingTime TakenCommentsBlood Govwmxme072/7608 1:07 PM EDT Wurkp0021 1:07 PM DLBLjvymahishm62.7 ??C (98 ??F)06/23/2023 12:11 PM EST Respiratory Woyd8824 1:07 PM EDTOxygen Meoynbhgdk87%02/09/2025 1:07 PM EDTInhaled Oxygen Concentration--Aoissl666 kg (224 lb)02/09/2025 1:07 PM EDT Mosavp085.8 cm (5' 10 )02/09/2025 1:07 PM EDTBody Mass Index32.1408 1:07 PM EDT Plan of Treatment Health MaintenanceDue DateLast DoneCommentsMedicare Annual Wellness (AWV) 1998Pneumococcal Vaccine: Pediatrics (0 to 5 Years) and At-Risk Patients (6 to 64 Years) (1 of 2 - PCV)2017Influenza HrjxhjcYragefnot76/20/2025, 06/01/2024, 05/30/2017, Additional history exists Insurance Care Teams Team MemberRelationshipSpecialtyStart DateEnd Date Unallocated, Noms MD Raheel [address] [facility] [address] [facility] - General12/29/22
[2025-06-09] MEDS: ACETAMINOPHEN 500 MG TABLET 1000 MG PO (10:46)
[2025-06-09] MEDS: DEXAMETHASONE 4 MG TABLET 12 MG PO (10:47)
[2025-06-09 10:53] VITALS: PULSE 110; O2SAT 96
[2025-06-09] MEDS: IPRATROPIUM/ALBUTEROL SULFATE 3 ML AMPUL.NEB 6 ML IH (10:53)
[2025-06-09 10:58] LABS: SARS-CoV-2 Ag NEGATIVE (NEGATIVE)
--- NOTE | 2025-06-09 13:15 | ED.GENADUL1 ---
HPI HPI - General Adult General Chief complaint: Upper Respiratory Infection Stated complaint: DIFFICULTY BREATHING, HEADACHE, JOINT PAIN, COUGH Time Seen by Provider: 06/09/25 10:27 Source: patient Mode of arrival: walk-in Limitations: no limitations History of Present Illness HPI narrative: Patient is a 25-year-old male presenting to the emergency department with a 24-hour history of URI symptoms. Patient has cough, congestion, runny nose, myalgias, and fatigue for the last 24 hours. He believes that exposure to plaster in a house worsen his symptoms. He has a history of asthma, but is otherwise healthy with no chronic medical conditions. He denies fevers or chills. No chest pain or shortness of breath. No nausea or vomiting or abdominal pain. Related Data Home Medications ?Medication ?Instructions ?Recorded ?Confirmed quetiapine 200 mg tablet (Seroquel) 200 mg PO DAILY 06/06/23 06/09/25 bupropion HCl 150 mg 24 hr tablet, 150 mg PO DAILY 06/09/25 06/09/25 extended release lisdexamfetamine 40 mg capsule 40 mg PO DAILY 06/09/25 06/09/25 Allergies Allergy/AdvReac Type Severity Reaction Status Date / Time No Known Drug Allergies Allergy Verified 10/29/24 19:56 Opioid HPI Opioid Management Most Recent Opioid Data: Last Pain Scale 8 Today, 10:46 Last MAR Pain Assessment Today, 10:46 Review of Systems ROS Status of ROS 10 or more systems reviewed and unremarkable except as noted in history and below PFSH PFSH Social History Smoking status: Never smoker Little interest or pleasure in doing things: not at all Feeling down, depressed, or hopeless: not at all Exam Narrative Exam Narrative: CONSTITUTIONAL: Well-appearing, sounds congested and coughing, answering questions and following commands appropriately SKIN: Was warm and dry. EYES: Sclerae white. EARS, NOSE, THROAT: Moist oral mucosa. Mild pharyngeal erythema. No tonsil larger than exudates. Clear rhinorrhea. RESPIRATORY: Mild bilateral expiratory wheezing. No use of accessory muscles. Speaking in full sentences. CARDIOVASCULAR: Normal rate and regular rhythm. There is no S3, S4, murmur, rub. GASTROINTESTINAL: Abdomen is nondistended. MUSCULOSKELETAL: No peripheral edema. NEUROLOGIC: Patient is awake and alert. Facies were symmetrical. Constitutional Vital Signs, click to edit/add: Last Vital Signs Temp 101.3 F H 06/09/25 10:31 Pulse 110 H 06/09/25 10:53 Resp 20 06/09/25 10:31 BP 135/85 06/09/25 10:31 Pulse Ox 96 06/09/25 10:53 O2 Del Method Room Air 06/09/25 10:53 Course Vital Signs Vital signs: Vital Signs Temperature 101.3 F H 06/09/25 10:31 Pulse Rate 94 H 06/09/25 10:31 Respiratory Rate 20 06/09/25 10:31 Blood Pressure 135/85 06/09/25 10:31 Pulse Oximetry 98 06/09/25 10:31 Oxygen Delivery Method Room Air 06/09/25 10:31 Temperature 101.3 F H 06/09/25 10:31 Pulse Rate 110 H 06/09/25 10:53 Respiratory Rate 20 06/09/25 10:31 Blood Pressure 135/85 06/09/25 10:31 Pulse Oximetry 96 06/09/25 10:53 Oxygen Delivery Method Room Air 06/09/25 10:53 Medical Decision Making [facility] Narrative Medical decision making narrative: Patient is a 25-year-old male presenting to the emergency department with a 24-hour history of URI symptoms. Vital signs on arrival are significant for fever of 101.3 ?F and mild tachycardia, otherwise within normal limits. He is saturating 96% on room air and in no respiratory distress. He has mild bilateral expiratory wheezing. Differential diagnose includes viral URI, bronchitis, mild asthma exacerbation. Viral swabs were obtained. He was treated symptomatically with oral dexamethasone, acetaminophen, and nebulized DuoNeb. Patient tested positive for influenza A. On reevaluation, patient states he feels significant improved after the breathing treatment. He is no longer wheezing on repeat auscultation. I do believe the patient is stable for discharge. They were instructed to follow up with his PCP as needed. Return precautions were given including any new or worsening symptoms. Patient understands and agrees to the plan. FINAL IMPRESSION: #Acute influenza A infection #Acute bronchitis DISPOSITION: Discharged home CONDITION: Good Lab Data Lab results reviewed: Yes I reviewed the patient's lab results Labs: Lab Results 06/09/25 Range/Units 10:30 Influenza Type A Ag Positive A Influenza Type B Ag Negative SARS-CoV-2 Ag (CV2AG) Negative (NEGATIVE) Discharge Plan Discharge Chief Complaint: Upper Respiratory Infection Clinical Impression: Influenza A Patient Disposition: Home, Self-Care Time of Disposition Decision: 11:03 Condition: Good Mode of Transportation: Private Vehicle Prescriptions / Home Meds: No Action quetiapine [Seroquel] 200 mg tablet 200 mg PO DAILY bupropion HCl 150 mg tablet extended release 24 hr 150 mg PO DAILY lisdexamfetamine 40 mg capsule 40 mg PO DAILY Print Language: Jordanian Instructions: Influenza (ED) Referrals: Physician,Non-Staff, MD [Primary Care Provider] - 1 week Discharge Date/Time: 06/09/25 11:10
== END 2025-06-09 11:10 | disposition home or self-care (01) ==
PROVIDERS: Emergency Provider Student in an Organized Health Care Education/Training Program
DX: J10.1 Influenza due to other identified influenza virus with other respiratory manifestations (principal); J45.909 Unspecified asthma, uncomplicated; R50.9 Fever, unspecified
CPT/HCPCS: 87804; 87811; 94640; 99283; J8540